=== PATIENT | female | born 1970 | race Caucasian/White ===

== ENCOUNTER 2016-11-02 08:54 | Emergency (ER) | payer OTHER | END 2016-11-02 10:56 | disposition home or self-care (01) | LOC: FER 08:54 | DX: L03.211 Cellulitis of face (principal) | CPT/HCPCS: J0295 ==

== ENCOUNTER 2021-01-08 06:31 | Day surgery (SDC) | payer OTHER ==
[~2021-01-08] VITALS: Ht 150 cm; Wt 74.0 kg
[~2021-01-08 06:31] MED LIST: DICLOFENAC SODI75 MG PO
--- NOTE | 2021-01-08 11:33 | NUR ---
UPON ARRIVAL TO [facility] FLOOR, PATIENT'S BLOOD PRESSURE 83/50. CRISTINE Schneider APRN NOTIFIED AND VERBAL ORDER RECEIVED FOR 500ML LR BOLUS. BOLUS STARTED IMMEDIATELY
--- NOTE | 2021-01-08 14:24 | NUR ---
ADVISED CRISTINE Schneider, RN REGISTRY OF PATIENT BLOOD PRESSURE, 89/55. RN REGISTRY INPUT ORDERS FOR 500ML NS BOLUS
--- NOTE | 2021-01-08 16:35 | NUR ---
PT. TO D/ HOME WITH SPOUSE. [facility] TO DELIVER A [facility]ALK[facility]. PT. REQUESTED [facility]. FIRST APPT. IS 01/09 @ 9:00 A.M.
[2021-01-09 05:41] LABS: BASOPHIL 0.1 % (0-2); EOSINOPHIL 0.1 % (0-5); HCT 30.8 % (37.0-47.0); HGB 9.9 g/dl (12.5-16.0); LYMPHOCYTE 11.1 % (15-48); MCH 28.4 pg (25.0-31.0); MCHC 32.1 g/dL (32.0-36.0); MCV 88.5 fL (78.0-100.0); MONOCYTE 5.2 % (0-12); MPV 10.5 fL (6.0-9.5); NEUTROPHIL 82.8 % (41-80); NRBC 0; PLT 205 K/uL (150-400); RBC 3.48 M/uL (4.20-5.40); RDW 13.3 % (11.5-14.0); WBC 12.2 K/uL (4.0-10.5)
[2021-01-09 07:07] LABS: CREATININE 0.7 mg/dL (0.51-0.95); POTASSIUM 4.6 mmol/L (3.5-5.1)
[2021-01-09] MEDS ORDERED: ULTRA-LIGHT RO1 EACH XX (08:20)
[2021-01-09] MEDS ORDERED: FEOSOL325 MG PO (08:22)
[2021-01-09] MEDS ORDERED: XARELTO10 MG PO (08:22)
[2021-01-09] MEDS ORDERED: OXYCODONE-ACET1 EAC1 PO (08:22)
--- NOTE | 2021-01-09 09:36 | NUR ---
CONTACTED [facility]ON[facility]. COPAY FOR XARELTO IS $35.00.
== END 2021-01-09 11:00 | disposition home or self-care (01) ==
LOC: FAS 06:31 → FMS 09:33 → FAS 01-09 11:00
PROVIDERS: Legal Medicine
DX: M17.12 Unilateral primary osteoarthritis, left knee (principal); Z79.899 Other long term (current) drug therapy
CPT/HCPCS: 36415; 73560; 80048; 85025; 86850; 86900; 86901; 94010; 94760; 94762; 97110; 97162; 97166; 97530-GP; 97535; C1713; C1776; J0171; J0697; J1100; J1170; J1885; J2250; J2270; J2405; J2704; J2710; J2795; J3010; J7040; J7120

== ENCOUNTER 2022-02-11 09:39 | Day surgery (SDC) | payer OTHER ==
[~2022-02-11] VITALS: Ht 150 cm; Wt 74.0 kg
[~2022-02-11 09:39] MED LIST changes: +APPLE CIDER VI500 MG PO; +CELEBREX **OUT100 MG PO; +FEOSOL325 MG PO; +OXYCODONE-ACET1 EAC1 PO; +ULTRA-LIGHT RO1 EACH XX; +XARELTO10 MG PO
--- NOTE | 2022-02-11 14:47 | NUR ---
PT HAD A RTKR THIS DATE. PT HAS A RW SHE REQUESTS [facility] FOR THERAPY FIRST MONICA IS Fri02/13/22 @ 12:30 P.M.
--- NOTE | 2022-02-11 16:23 | NUR ---
PT HAS A RW. SHE REQUESTED [facility]. FIRST APPT IS Fri02/13/22 @ 12:30 PM. CHOICE FORM SIGNED AND COPY GIVEN.
[2022-02-12 06:15] LABS: BASOPHIL 0.3 % (0-2); EOSINOPHIL 1.3 % (0-5); HCT 31.9 % (37.0-47.0); HGB 10.3 g/dl (12.5-16.0); LYMPHOCYTE 18.6 % (15-48); MCHC 32.3 g/dL (32.0-36.0); MCV 89.9 fL (78.0-100.0); MONOCYTE 6.4 % (0-12); MPV 10.1 fL (6.0-9.5); NEUTROPHIL 72.7 % (41-80); NRBC 0; PLT 189 K/uL (150-400); RBC 3.55 M/uL (4.20-5.40); RDW 13.1 % (11.5-14.0); WBC 8.9 K/uL (4.0-10.5)
[2022-02-12 06:34] LABS: BUN/CREAT RATIO (CALC) 13.6 RATIO; CREATININE 0.66 mg/dL (0.51-0.95); POTASSIUM 4.2 mmol/L (3.5-5.1)
[2022-02-12] MEDS ORDERED: FEOSOL325 MG PO (08:56)
[2022-02-12] MEDS ORDERED: OXYCODONE-ACET1 EAC1 PO (08:56)
[2022-02-12] MEDS ORDERED: XARELTO10 MG PO (08:56)
== END 2022-02-12 14:40 | disposition home or self-care (01) ==
LOC: FAS 09:39 → FMS 15:44 → FAS 02-12 14:40
PROVIDERS: Legal Medicine
DX: M17.11 Unilateral primary osteoarthritis, right knee (principal); I95.81 Postprocedural hypotension
CPT/HCPCS: 36415; 73560; 80048; 85025; 86850; 86900; 86901; 94010; 97110; 97162; 97165; C1713; C1776; J0171; J0697; J1885; J2250; J2270; J2795; J3010; J7120

== ENCOUNTER 2022-02-18 16:54 | Emergency (ER) | payer OTHER | END 2022-02-18 21:16 | disposition home or self-care (01) | LOC: FER 16:54 | DX: M79.604 Pain in right leg (principal); R22.41 Localized swelling, mass and lump, right lower limb | CPT/HCPCS: 93971 ==

== ENCOUNTER → 2022-03-18 | Day surgery (SDC) | payer OTHER ==
[~2022-03-18] VITALS: Ht 150 cm; Wt 74.0 kg
[~2022-03-18] MED LIST changes: +ASPIRIN325 MG PO; +VIBRAMYCIN100 MG PO
[2022-03-18 12:25] LABS: HGB 12.3 g/dl (12.5-16.0); MCH 28.5 pg (25.0-31.0); MCHC 32.4 g/dL (32.0-36.0); MCV 88.2 fL (78.0-100.0); MPV 9.9 fL (6.0-9.5); RBC 4.31 M/uL (4.20-5.40); WBC 7.7 K/uL (4.0-10.5)
== END | disposition home or self-care (01) ==
LOC: FAS 11:00
PROVIDERS: Legal Medicine
DX: T81.32XA Disruption of internal operation (surgical) wound, not elsewhere classified, initial encounter (principal); Y79.2 Prosthetic and other implants, materials and accessory orthopedic devices associated with adverse incidents; Y83.8 Other surgical procedures as the cause of abnormal reaction of the patient, or of later complication, without mention of misadventure at the time of the procedure
CPT/HCPCS: 36415; 87070; 87075; 87205; 93005; J0690; J1100; J1170; J2250; J2405; J2704; J2795; J3010; J3260; J7120